=== PATIENT | male | born 2000 | race Native Hawaiian/Other Pacific Islander ===

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

== ENCOUNTER 2023-06-01 03:54 | Emergency (ER) | payer OTHER ==
[~2023-06-01] VITALS: Ht 185.4 cm; Wt 81.6 kg
[2023-06-01] MEDS ORDERED: ACETAMINOPHEN 325 MG TAB PO ONE (04:20)
[2023-06-01] MEDS ORDERED: MELOXICAM15 MG PO (04:24)
== END 2023-06-01 04:34 | disposition home or self-care (01) ==
LOC: ED 03:54
DX: S20.212A Contusion of left front wall of thorax, initial encounter (principal); Z98.890 Other specified postprocedural states; X58.XXXA Exposure to other specified factors, initial encounter; Y93.67 Activity, basketball; Y92.310 Basketball court as the place of occurrence of the external cause; Y99.8 Other external cause status

== ENCOUNTER 2023-12-16 20:28 | Emergency (ER) | payer OTHER ==
[~2023-12-16] VITALS: Ht 185.4 cm; Wt 85.7 kg
[~2023-12-16 20:28] MED LIST changes: +MELOXICAM15 MG PO
[2023-12-16] MEDS ORDERED: Acetaminophen/Hydrocodone 5 MG/325 MG TABLET PO ONE (21:45)
[2023-12-16] MEDS ORDERED: Ondansetron Hydrochloride 4 MG TAB SL ONE (21:45)
== END 2023-12-16 22:16 | disposition home or self-care (01) ==
LOC: ED 20:28
DX: S60.121A Contusion of right index finger with damage to nail, initial encounter (principal); Z98.890 Other specified postprocedural states; W23.0XXA Caught, crushed, jammed, or pinched between moving objects, initial encounter; Y93.89 Activity, other specified; Y92.89 Other specified places as the place of occurrence of the external cause; Y99.0 Civilian activity done for income or pay

== ENCOUNTER 2024-04-25 03:33 | Emergency (ER) | payer OTHER ==
[~2024-04-25] VITALS: Ht 185.4 cm; Wt 86.2 kg
[2024-04-25] MEDS ORDERED: Lidocaine Hydrochloride 15 ML UDC PO STA (03:42)
[2024-04-25] MEDS ORDERED: MG-AL HYDROXIDE/SIMETICONE 30 ML UDC PO STA (03:42)
[2024-04-25] MEDS ORDERED: Dicyclomine Hydrochloride 20 MG/10 ML OSYR PO STA (03:42)
[2024-04-25] MEDS ORDERED: OMEPRAZOLE40 MG PO (04:09)
== END 2024-04-25 04:14 | disposition home or self-care (01) ==
LOC: ED 03:33
DX: K21.9 Gastro-esophageal reflux disease without esophagitis (principal); Z98.890 Other specified postprocedural states